=== PATIENT | female | born 1975 | race African-American/Black ===

== ENCOUNTER 2017-02-26 14:51 | Emergency (ER) | payer BC ==
[~2017-02-26] VITALS: Ht 160 cm; Wt 65.8 kg
[~2017-02-26 14:51] MED LIST: NAPR550T PO
--- NOTE | 2017-02-26 16:24 | RAD ---
Indication: Chest pain and cough. Time of exam 1612 hours. No prior studies are available for comparison. The heart size is normal. There appears be a large calcified node in the right paratracheal location. There is also a calcified granuloma noted on the lateral view. No infiltrates are detected. No effusion or pneumothorax is seen. Impression: No acute cardiopulmonary process is detected.
--- NOTE | 2017-02-26 16:28 | PHYS DOC ---
Past Medical History Past Medical History: No Pertinent History Past Surgical History: Other Additional Past Surgical Histo: bilateral knee orthopedic Smoking: Cigarettes, Greater than 1 pack/day Alcohol Use: Occasionally Drug Use: None Adult General Chief Complaint Chief Complaint: COUGH HPI HPI Patient is a 41 year old pleasant -[place] female with history of cough for 2 days pleuritic chest wall pain that began after coughing while exerting herself yesterday mowing the lawn. Patient is evident smoking history and all positive cancer lung history by family members who presents with pleuritic chest wall pain began after nonproductive cough. Yesterday while exercising. Patient describes the chest pain is pleuritic in nature located underneath the left breast underneath the arm with no radiation to the back. She denies any production with the cough, but she has had URI symptoms of runny nose congestion that she sat was allergies. She denies any fever, chills, nausea , vomiting, shortness of breath except splinting with chest pain. Patient denies any arm pain as tingling to her fingers on the left side is now resolved. Patient denies any neck pain denies any trauma specifically to the shoulder or arm. She has had symptoms like this in the past. Her chest pain at this time 4 out of 10 when at rest about a 7 of 10 when she coughs. Impression denies any rash denies any travel denies any pulmonary most risk factors. PERC Criteria Assessment: Age > 50: No HR > 100: No 02 < 95%: No H/o DVT/PE: No Recent trauma/surgery: No Hemoptysis No Exogenous Estrogen: No Unilateral Leg swelling: No Pretest probability > 15%: No Less than 2% risk of PE. No further work up is necessary Differential diagnosis for chest pain: Pericarditis, myocarditis, endocarditis, pneumothorax, pneumonia, aortic dissection, esophageal spasm, esophagitis, peptic ulcer disease, acute coronary syndrome, mediastinitis, Boerhaave syndrome , musculoskeletal chest wall pain, costochondritis, intercostal strain, rib fracture, pulmonary contusion, pneumonitis, pleural effusion, pericardial effusion, pericardial tamponode, and pleurisy. Review of Systems Review of Systems Constitutional: Denies fever or chills [] Eyes: Denies change in visual acuity, redness, or eye pain [] HENT: As patient does complain of clear nasal discharge Respiratory: No scleral nonproductive cough and no shortness of breath Cardiovascular: No additional information not addressed in HPI [] GI: Denies abdominal pain, nausea, vomiting, bloody stools or diarrhea [] : Denies dysuria or hematuria [] Musculoskeletal: Denies back pain or joint pain [] Integument: Denies rash or skin lesions [] Neurologic: Denies headache, focal weakness or sensory changes [] Endocrine: Denies polyuria or polydipsia [] Allergies Allergies Allergies Coded Allergies Type Severity Reaction Last Updated Verified No Known Drug Allergies 12/22/14 No Physical Exam Physical Exam Auto signs stable within normal limits no hypoxia and no tachypnea. Constitutional: Well developed, well nourished, no acute distress, non-toxic appearance. [] HENT: Normocephalic, atraumatic, bilateral external ears normal, oropharynx moist, no oral exudates, nose normal. [] Eyes: PERRLA, EOMI, conjunctiva normal, no discharge. [] Neck: Normal range of motion, no tenderness, supple, no stridor. [] Cardiovascular:Heart rate regular rhythm, no murmur is no pain. His belly exam when pushing over the eighth and ninth rib 6 mid rib intercostal space in the midaxillary line on the left. There is no rash there is no soft tissue swelling is no bony tenderness to palpation with crepitus. Lungs & Thorax: Bilateral breath sounds clear to auscultation [] Abdomen: Bowel sounds normal, soft, no tenderness, no masses, no pulsatile masses. [] Skin: Warm, dry, no erythema, no rash. [] Back: No tenderness, no CVA tenderness. [] Extremities: No tenderness, no cyanosis, no clubbing, ROM intact, no edema. [] Neurologic: Alert and oriented X 3, normal motor function, normal sensory function, no focal deficits noted. [] Psychologic: Affect normal, judgement normal, mood normal. [] Current Patient Data Vital Signs Vital Signs Date Time Temp Pulse Resp B/P (MAP) Pulse Ox O2 Delivery O2 Flow Rate FiO2 02/26/17 16:30 98.1 71 18 98 Room Air 98.1 Lab Values Laboratory Tests Test 02/26/17 16:28 POC Troponin I 0.00 ng/ml (<0.08) EKG EKG [] EKG timed 1617 02/26/2017heart rate of 55 sinus bradycardia normal sinus rhythm with a P-wave 2 every QRS. Intervals normal at 152 QRS intervals normal 74 QTC is normal for 58. a similar T-wave changes consistent with acute ischemia read by Dr. Ruiz. Radiology/Procedures Radiology/Procedures [] IMAGING REPORT Signed PATIENT: HUMAIRA NOLASCO ACCOUNT: [id number] : 1975 LOCATION: ER AGE: 41 SEX: F EXAM STATUS: REG ER ORD. PHYSICIAN: THIERRY RUIZ MD REASON: chest pain after cough PROCEDURE: CHEST PA & LATERAL Indication: Chest pain and cough. Time of exam 1612 hours. No prior studies are available for comparison. The heart size is normal. There appears be a large calcified node in the right paratracheal location. There is also a calcified granuloma noted on the lateral view. No infiltrates are detected. No effusion or pneumothorax is seen. Impression: No acute cardiopulmonary process is detected. DICTATED and SIGNED BY: CONI MCCRAY MD DATE: 02/26/17 1621 CC: THIERRY RUIZ MD; NO PCP ~ Course & Med Decision Making Course & Med Decision Making Pertinent Labs and Imaging studies reviewed. (See chart for details) Since chest x-ray, EKG, bedside troponin by i-STAT was less than 0.017 negative. Impression with poor chest pain is reproducible on exam worse with cough. This pleurisy is likely associated with bronchitis. She does have a significant risk factor for lung cancer given her family history in her smoking history she was encouraged to quit smoking.Differential diagnosis for chest pain : Pericarditis, myocarditis, endocarditis, pneumothorax, pneumonia, aortic dissection, esophageal spasm, esophagitis, peptic ulcer disease, acute coronary syndrome, mediastinitis, Boerhaave syndrome, musculoskeletal chest wall pain, costochondritis, intercostal strain, rib fracture, pulmonary contusion, pneumonitis, pleural effusion, pericardial effusion, pericardial tamponode, and pleurisy. Was considered Mitigate her risks for heart disease although says no evidence of heart damage today. Given duration of symptoms I encouraged her to quit smoking exercise in the right. Coded to heart score patient is low risk for acute coronary event in the next 30 days. History: Highly suspicious 2 points moderately suspicious 1. slightly suspicious 0 point EKG: ST segment depression 2. nonspecific repolarization disturbance 1. normal 0 point Age: Greater than 65 2 points, 65-45 1., less than 45 years old 0 points Risk factors:> 3 risk factors 2 points, 1-2 risk factors one point, no risk factors 0 point Troponin: > 2 times normal 2 points, 1-2 times normal 1., normal limits 0 point Total score: Score % pts MACE/n MACE Policy 0-3 32% 1.9% 0.05% Discharge 4-6 51% 413/3136 13% 1.3% Observation Risk management 7-10 17% 518/1045 50% 2.8% Observation Treatment, CAG [] Impression: Bronchitis, pleuritic chest pain secondary to cough. Disposition: PCP follow-up encouraged to quit smoking course of azithromycin, Lortab and mucolytic Dragon Disclaimer Dragon Disclaimer This electronic medical record was generated, in whole or in part, using a voice recognition dictation system. Departure Departure Impression: Primary Impression: Chest wall pain Additional Impression: Bronchitis Disposition: 01 HOME, SELF-CARE Condition: IMPROVED Referrals: NO PCP (PCP) Patient Instructions: Acute Bronchitis, Chest Pain (Nonspecific) Additional Instructions: Please return for any new or increasing symptoms or given any questions or concerns. I would advise that he quit smoking as that may mitigate your risk for developing heart disease and lung cancer. Scripts Hydrocodone Bit/Acetaminophen (HYDROCODONE-APAP 5-325 ) 1 Each Tablet 1-2 TAB PO PRN Q6HRS Y for PAIN for 5 Days, #10 TAB 0 Refills Prov: THIERRY RUIZ MD 02/26/17 Guaifenesin/Dextromethorphan (MUCINEX DM ER 600-30 MG TABLET) 1 Each Tab.er.12h 1 TAB PO PRN Q12HRS, #20 TAB Prov: THIERRY RUIZ MD 02/26/17 Azithromycin (AZITHROMYCIN TABLET) 250 Mg Tablet 250 MG PO DAILY Y for infection for 5 Days, #6 TAB 0 Refills Please take 2 tablets on day 1 then 1 tablet days 2 through 5. Prov: THIERRY RUIZ MD 02/26/17 Problem Qualifiers THIERRY RUIZ MD Feb 26, 2017 16:28
[2017-02-26 16:30] VITALS: BP 129/75
[2017-02-26] MEDS ORDERED: AZIT250T6 PO (16:54)
[2017-02-26] MEDS ORDERED: HYDR-2666 PO (16:54)
[2017-02-26] MEDS ORDERED: GUAI-42 PO (16:54)
--- NOTE | 2017-02-27 06:11 | EKG ---
[facility] [address] [place] [address] Test Date: 2017-02-26 Test Time: 16:17:27 Pat Name: HUMAIRA NOLASCO Department: Room: Gender: F [employer] Professor: ,, : 1975 Requested By: THIERRY RUIZ Order Number: [id number] Reading MD: Arielle David Measurements Intervals [place] Rate: 55 P: 72 AL: 152 QRS: 44 QRSD: 74 T: 57 QT: 476 QTc: 458 Interpretive Statements SINUS RHYTHM LEFT ATRIAL ABNORMALITY RI6.01 Unconfirmed report No previous ECG available for comparison Electronically Signed On 03-02-2017 22:12:21 CDT by Arielle David
== END 2017-02-26 17:00 | disposition home or self-care (01) ==
LOC: ER 14:51
DX: J40 Bronchitis, not specified as acute or chronic (principal); F17.210 Nicotine dependence, cigarettes, uncomplicated
CPT/HCPCS: 71020; 84484; 93005; 99284-25

== ENCOUNTER 2017-05-29 12:01 | Emergency (ER) | payer BC, OTHER ==
[~2017-05-29] VITALS: Ht 160 cm; Wt 69.4 kg
[~2017-05-29 12:01] MED LIST changes: +AZIT250T6 PO; +GUAI-108 PO; +HYDR-2758 PO; +NAPR-682 PO; -NAPR550T PO
[2017-05-29 12:31] VITALS: BP 125/72
[2017-05-29] MEDS ORDERED: PRED50TA PO (12:51)
[2017-05-29] MEDS ORDERED: ACYC800T PO (12:51)
[2017-05-29] MEDS ORDERED: AMOX875T PO (12:51)
--- NOTE | 2017-05-29 12:51 | PHYS DOC ---
Past Medical History Past Medical History: No Pertinent History Past Surgical History: Tubal ligation, Other Additional Past Surgical Histo: bilateral knee orthopedic Alcohol Use: Occasionally Drug Use: None Adult General Chief Complaint Chief Complaint: EARACHE/EAR PAIN [facility] HPI Patient is a 42 year old female who presents today with left ear pain nasal congestion and a rash on her chest for 1 day. Patient denies any fever. Review of Systems Review of Systems Constitutional: See history of present illness Eyes: Denies change in visual acuity, redness, or eye pain [] HENT: Left ear pain, nasal congestion Respiratory: Denies cough or shortness of breath [] Cardiovascular: No additional information not addressed in HPI [] GI: Denies abdominal pain, nausea, vomiting, bloody stools or diarrhea [] : Denies dysuria or hematuria [] Musculoskeletal: Denies back pain or joint pain [] Integument: rash Neurologic: Denies headache, focal weakness or sensory changes [] Allergies Allergies Allergies Coded Allergies Type Severity Reaction Last Updated Verified No Known Drug Allergies 12/22/14 No Physical Exam Physical Exam Constitutional: Well developed, well nourished, no acute distress, non-toxic appearance. [] HENT: Normocephalic, atraumatic, bilateral external ears normal, oropharynx moist, no oral exudates, Left TM is mildly injected, patient is congested nasally. Eyes: PERRLA, EOMI, conjunctiva normal, no discharge. [] Neck: Normal range of motion, no tenderness, supple, no stridor. [] Cardiovascular:Heart rate regular rhythm, no murmur [] Lungs & Thorax: Bilateral breath sounds clear to auscultation [] Abdomen: Bowel sounds normal, soft, no tenderness, no masses, no pulsatile masses. [] Skin: Patient has a grouped lesions of papular rash on her chest suspicious of shingles. Back: No tenderness, no CVA tenderness. [] Extremities: No tenderness, no cyanosis, no clubbing, ROM intact, no edema. [] Neurologic: Alert and oriented X 3, normal motor function, normal sensory function, no focal deficits noted. [] Psychologic: Affect normal, judgement normal, mood normal. [] Current Patient Data Vital Signs Vital Signs Date Time Temp Pulse Resp B/P (MAP) Pulse Ox O2 Delivery O2 Flow Rate FiO2 05/29/17 12:31 98.1 76 20 99 Room Air 98.1 EKG EKG [] Radiology/Procedures Radiology/Procedures [] Course & Med Decision Making Course & Med Decision Making Pertinent Labs and Imaging studies reviewed. (See chart for details) Patient has left otitis media, upper respiratory infection, and shingles. Discharged with prednisone, acyclovir and amoxicillin. Follow-up with PCP in 1- 2 weeks. Dragon Disclaimer Dragon Disclaimer This electronic medical record was generated, in whole or in part, using a voice recognition dictation system. Departure Departure Impression: Primary Impression: Upper respiratory infection Additional Impressions: Shingles outbreak Otitis media Disposition: HOME, SELF-CARE Condition: STABLE Referrals: NO PCP (PCP) follow up with your doctor in one week Patient Instructions: Otitis Media, Adult, Shingles, [id number], Upper Respiratory Infection, Adult Additional Instructions: You were seen for ear infection and upper respiratory infection and shingles. Take the prescribed medicines as ordered. Follow-up with your doctor in 1-2 weeks. Scripts Amoxicillin (AMOXICILLIN) 875 Mg Tablet 1 TAB PO BID, #20 TAB Prov: WILLEM MENDEZ APRN 05/29/17 Acyclovir (ACYCLOVIR) 800 Mg Tablet 1 TAB PO 5XDAY, #50 TAB Prov: WILLEM MENDEZ APRN 05/29/17 Prednisone (PREDNISONE) 50 Mg Tablet 1 TAB PO DAILY, #5 TAB Prov: WILLEM MENDEZ APRN 05/29/17 Problem Qualifiers Primary Impression: Upper respiratory infection URI type: unspecified URI Qualified Codes: J06.9 - Acute upper respiratory infection, unspecified Additional Impressions: Shingles outbreak Herpes zoster complications: without complications Qualified Codes: B02.9 - Zoster without complications Otitis media Otitis media type: other nonsuppurative Chronicity: acute Laterality: left Recurrence: not specified as recurrent Qualified Codes: H65.192 - Other acute nonsuppurative otitis media, left ear WILLEM MENDEZ APRN May 29, 2017 12:51
== END 2017-05-29 13:06 | disposition home or self-care (01) ==
LOC: ER 12:01
DX: H66.92 Otitis media, unspecified, left ear (principal); J06.9 Acute upper respiratory infection, unspecified; B02.9 Zoster without complications; R21 Rash and other nonspecific skin eruption
CPT/HCPCS: 99283

== ENCOUNTER 2017-06-15 19:29 | Emergency (ER) | payer OTHER ==
[~2017-06-15 19:29] MED LIST changes: +ACYC800T PO; +AMOX875T PO; +PRED50TA PO
[2017-06-15 20:31] VITALS: BP 143/98
--- NOTE | 2017-06-15 20:42 | PHYS DOC ---
Past Medical History Past Medical History: No Pertinent History Past Surgical History: Tubal ligation, Other Additional Past Surgical Histo: bilateral knee orthopedic Alcohol Use: Occasionally Drug Use: None Adult General Chief Complaint Chief Complaint: UPPER EXTREMITY INJURY HPI HPI Patient is a 42 year old female presents to the emergency department with complaints of left elbow pain. Patient states that she fell down the steps striking her elbow on the edge of the steps. She's had pain since incident which occurred approximately hour prior to arrival. She has no other complaints. Review of Systems Review of Systems Constitutional: Denies fever or chills [] Eyes: Denies change in visual acuity, redness, or eye pain [] HENT: Denies nasal congestion or sore throat [] Respiratory: Denies cough or shortness of breath [] Cardiovascular: No additional information not addressed in HPI [] GI: Denies abdominal pain, nausea, vomiting, bloody stools or diarrhea [] : Denies dysuria or hematuria [] Musculoskeletal: left elbow pain Integument: Denies rash or skin lesions [] Neurologic: Denies headache, focal weakness or sensory changes [] Endocrine: Denies polyuria or polydipsia [] Current Medications Current Medications Current Medications Medications (Trade) Dose Ordered Sig/Fam Start Time Stop Time Status Last Admin Dose Admin Fentanyl Citrate (Fentanyl 2ml Vial) 50 mcg 1X ONCE 06/15/17 20:45 06/15/17 20:46 DC 06/15/17 21:01 50 MCG Allergies Allergies Allergies Coded Allergies Type Severity Reaction Last Updated Verified No Known Drug Allergies 12/22/14 No Physical Exam Physical Exam Constitutional: Well developed, well nourished, no acute distress, non-toxic appearance. [] HENT: Normocephalic, atraumatic, bilateral external ears normal, oropharynx moist, no oral exudates, nose normal. [] Eyes: PERRLA, EOMI, conjunctiva normal, no discharge. [] Neck: Normal range of motion, no tenderness, supple, no stridor. [] Cardiovascular:Heart rate regular rhythm, no murmur [] Lungs & Thorax: Bilateral breath sounds clear to auscultation [] Abdomen: Bowel sounds normal, soft, no tenderness, no masses, no pulsatile masses. [] Skin: Warm, dry, no erythema, no rash. [] Back: No tenderness, no CVA tenderness. [] Extremities: Left upper extremity: Left shoulder left wrist exam unremarkable. Patient has mild tenderness to palpate over the olecranon. She refuses to allow for range of motion. She will allow for pronation and supination, and has pain with supination. Her vascular intact distally. Neurologic: Alert and oriented X 3, normal motor function, normal sensory function, no focal deficits noted. [] Psychologic: Affect normal, judgement normal, mood normal. [] Current Patient Data Vital Signs Vital Signs Date Time Temp Pulse Resp B/P (MAP) Pulse Ox O2 Delivery O2 Flow Rate FiO2 06/15/17 21:01 Room Air 06/15/17 20:31 98.3 66 20 100 98.3 EKG EKG [] Radiology/Procedures Radiology/Procedures Left elbow x-ray reviewed, no acute changes. This and is advised the patient of the normal x-ray results, she began to really use the extremity, active and passive range of motion without difficulty or apparent increase in pain. Sling for comfort as needed. Ibuprofen [id number] as labeled and is indicated for symptom management.[] Course & Med Decision Making Course & Med Decision Making Pertinent Labs and Imaging studies reviewed. (See chart for details) [] Dragon Disclaimer Dragon Disclaimer This electronic medical record was generated, in whole or in part, using a voice recognition dictation system. Departure Departure Impression: Primary Impression: Contusion of elbow, left Disposition: 01 HOME, SELF-CARE Condition: STABLE Referrals: NO PCP (PCP) [facility] Patient Instructions: Arm Sling Use, [id number], Elbow Contusion, RICE - Routine Care for Injuries Scripts Naproxen (NAPROSYN) 500 Mg Tablet 500 MG PO BID, #20 TAB Prov: RIVERA NICE APRN 06/15/17 Problem Qualifiers Primary Impression: Contusion of elbow, left Encounter type: initial encounter Qualified Codes: S50.02XA - Contusion of left elbow, initial encounter RIVERA NICE APRN Jun 15, 2017 20:42
[2017-06-15] MEDS ORDERED: fentaNYL PF VIAL 100 MCG/2 ML VIAL IM ONE (20:45)
[2017-06-15] MEDS ORDERED: NAPR500T PO (21:59)
--- NOTE | 2017-06-16 07:39 | RAD ---
Indication injury, pain. AP oblique and lateral views of the left elbow were obtained. No fracture is seen. There is, however, joint effusion and an occult fracture is not entirely excluded. Clinical correlation as to necessity for additional imaging evaluation advised
== END 2017-06-15 22:33 | disposition home or self-care (01) ==
LOC: ER 19:29
DX: S50.02XA Contusion of left elbow, initial encounter (principal); W10.9XXA Fall (on) (from) unspecified stairs and steps, initial encounter; Y93.89 Activity, other specified; Y92.89 Other specified places as the place of occurrence of the external cause; Y99.8 Other external cause status
CPT/HCPCS: 73080; 96372; 99284; J3010

== ENCOUNTER 2018-03-12 21:07 | Emergency (ER) | payer SELFPAY, OTHER | END 2018-03-12 23:05 | disposition home or self-care (01) | LOC: ER 21:07 | DX: H66.93 Otitis media, unspecified, bilateral (principal); J02.9 Acute pharyngitis, unspecified; F17.200 Nicotine dependence, unspecified, uncomplicated; I10 Essential (primary) hypertension; G43.909 Migraine, unspecified, not intractable, without status migrainosus; Z98.51 Tubal ligation status | CPT/HCPCS: 99283 ==

== ENCOUNTER 2018-05-08 10:20 | Emergency (ER) | payer SELFPAY ==
[~2018-05-08] VITALS: Ht 160 cm; Wt 65.8 kg
[~2018-05-08 10:20] MED LIST changes: +AMOX1TAB61 PO; +NAPR-683 PO
[2018-05-08 10:24] VITALS: BP 150/97
--- NOTE | 2018-05-08 10:59 | PHYS DOC ---
Past Medical History Past Medical History: Migraines Past Surgical History: Tubal ligation, Other Additional Past Surgical Histo: bilateral knee orthopedic Alcohol Use: Occasionally Drug Use: None Adult General Chief Complaint Chief Complaint: EYE PROBLEMS HPI HPI 32-year-old female presents to ER with complaints of bilateral eye swelling and itching and irritation. Patient reports she applied makeup this past week in which she typically goes without makeup and since wearing she has had onset of symptoms. She reports sinus congestion, lt ear pressure, and bilat. eye irritation. Review of Systems Review of Systems Constitutional: Denies fever or chills [] Eyes: Denies change in visual acuity, redness, or eye pain [] HENT: Denies sore throat. Reports sinus congestion. Lt ear pressure no pain or decreased hearing. Respiratory: Denies cough or shortness of breath [] Cardiovascular: No additional information not addressed in HPI [] GI: Denies abdominal pain, nausea, vomiting, bloody stools or diarrhea [] : Denies dysuria or hematuria [] Musculoskeletal: Denies back pain or joint pain [] Integument: Denies rash or skin lesions [] Neurologic: Denies headache, focal weakness or sensory changes. Denies dizziness /lightheadedness All other systems were reviewed and found to be within normal limits, except as documented in this note. Current Medications Current Medications Current Medications Medications (Trade) Dose Ordered Sig/Fam Start Time Stop Time Status Last Admin Dose Admin Famotidine (Pepcid) 40 mg 1X ONCE 05/08/18 11:00 05/08/18 11:01 DC 05/08/18 11:01 40 MG Prednisone (Prednisone) 40 mg 1X ONCE 05/08/18 11:00 05/08/18 11:01 DC 05/08/18 11:01 40 MG Allergies Allergies Allergies Coded Allergies Type Severity Reaction Last Updated Verified No Known Drug Allergies 12/22/14 No Physical Exam Physical Exam Constitutional: Well developed, well nourished, no acute distress, non-toxic appearance. [] HENT: Normocephalic, atraumatic,mucous membranes pink/moist, NL pharyngeal exam with no tonsillar/uvula swelling/erythema, turbinates swollen bilat. with no facial swelling/erythema- no nasal drainage. [] Eyes: 3mm PERRLA, EOMI- no eye pain with eye movement, no nystagmus. Bilat. upper eyelid swelling- pt is able to open bilat. eyes has clear/tearlike drainage no purulence Neck: Normal range of motion, no tenderness, supple, no gross adenopathy Cardiovascular:Heart rate regular rhythm, no murmur [] Lungs & Thorax: Bilateral breath sounds clear to auscultation. Resp. equal/ nonlabored Abdomen: Bowel sounds normal, soft, no tenderness, no masses, no pulsatile masses. [] Skin: Warm, dry, no erythema, no rash. [] Back: No tenderness, no CVA tenderness. [] Extremities: No tenderness, no cyanosis, no clubbing, ROM intact, no edema. [] Neurologic: Alert and oriented X 3, normal motor function, normal sensory function, no focal deficits noted. [] Psychologic: Affect normal, judgement normal, mood normal. [] Current Patient Data Vital Signs Vital Signs Date Time Temp Pulse Resp B/P (MAP) Pulse Ox O2 Delivery O2 Flow Rate FiO2 05/08/18 10:24 98.2 63 16 150/97 (114) 99 Room Air 98.2 EKG EKG [] Radiology/Procedures Radiology/Procedures [] Course & Med Decision Making Course & Med Decision Making 1135: pt reports improved sxs since receiving pepcid/prednisone while in ER. On re-eval pt has less bilat. eye swelling with pt reporting vision clear and less irritation. Pt reports itching has mostly subsided. She denies SOA/throat pain or swelling and is in no visible distress. Discussed plans for home discharge with Rx for prednisone and her to use OTC benedryl/pepcid as needed, visine gtts , or topical hydrocortisone cream on skin irritation. Pt at time of discharge had BP 138/77 as initial reading was elevated. Pt denies any past hx of HTN. Will provide clinic referral info with discharge paperwork for f/u as pt has no PCP. Discharge instructions discussed and education provided on s&s to return to ER for. Pt will be given Rx for Prednisone for additional 4 days to be started tomorrow. At time of discharge discussion pt was in no visible distress. Dragon Disclaimer Dragon Disclaimer This electronic medical record was generated, in whole or in part, using a voice recognition dictation system. Departure Departure Impression: Primary Impression: Allergic conjunctivitis Additional Impression: Contact dermatitis Disposition: 01 HOME, SELF-CARE Condition: STABLE Referrals: NO PCP (PCP) Patient Instructions: Allergic Conjunctivitis, Contact Dermatitis Additional Instructions: You can use over the counter benedryl or other antihistamine such as pepcid which you received in the Emergency Department- as needed and as directed on container. Visine or artificial tears as needed as directed on container. Cool compresses to eye lids. Avoid make-up, new lotions, or other new facial skin products until symptoms resolve. Scripts Prednisone (PREDNISONE) 20 Mg Tablet 40 MG PO DAILY, #8 TAB 0 Refills start prescription on 05/09/18 as you received first dose in ER- take for 4 days Prov: ELIZABETH MUSE APRN 05/08/18 Problem Qualifiers ELIZABETH MUSE APRN May 08, 2018 10:59
[2018-05-08] MEDS ORDERED: FAMOTIDINE 20 MG TABLET. PO ONE (11:00)
[2018-05-08] MEDS ORDERED: predniSONE 20 MG TABLET PO ONE (11:00)
[2018-05-08] MEDS ORDERED: PRED20TA PO (11:48)
== END 2018-05-08 12:01 | disposition home or self-care (01) ==
LOC: ER 10:20
DX: H10.13 Acute atopic conjunctivitis, bilateral (principal); L25.9 Unspecified contact dermatitis, unspecified cause; G43.909 Migraine, unspecified, not intractable, without status migrainosus; Z98.51 Tubal ligation status
CPT/HCPCS: 99284; J7512; 99283

== ENCOUNTER 2018-08-12 12:00 | Emergency (ER) | payer SELFPAY ==
[~2018-08-12] VITALS: Ht 160 cm; Wt 62.7 kg
[~2018-08-12 12:00] MED LIST changes: +PRED20TA PO
[2018-08-12 12:28] LABS: BILIRUBIN,URINE NEGATIVE (NEG); CLARITY,URINE CLEAR; COLOR,URINE YELLOW; NITRITE,URINE NEGATIVE (NEG); PH,URINE 6.5; PROTEIN,URINE NEGATIVE (NEG-TRACE)
[2018-08-12] MEDS ORDERED: ORPHENADRINE CITRATE 60 MG/2 ML VIAL. IV ONE (12:30)
[2018-08-12] MEDS ORDERED: DEXAMETHASONE SOD PHOS 20 MG/5 ML VIAL. IV ONE (12:30)
[2018-08-12] MEDS ORDERED: KETOROLAC 30 MG/ML VIAL. IV ONE (12:30)
[2018-08-12 12:39] LABS: BACTERIA,URINE FEW /HPF (0-FEW); RBC,URINE 0 /HPF (0-2); SQUAMOUS EPITHELIAL CELL,UR MOD /LPF
--- NOTE | 2018-08-12 12:40 | PHYS DOC ---
Past Medical History Past Medical History: No Pertinent History, Migraines Past Surgical History: Tubal ligation, Other Additional Past Surgical Histo: bilateral knee orthopedic Alcohol Use: Occasionally Drug Use: None Adult General Chief Complaint Chief Complaint: UPPER EXTREMITY PAIN HPI HPI Patient is a 43-year-old female who presents with one-week history of upper back pain and neck pain that started after she had been lifting some heavy objects. She states that the next morning is when the pain and started. She states that since that time, pain is gotten worse and she now has some radiation of the pain down her arm and numbness and tingling to the fourth and fifth digits of her right hand. She indicates the pain is worsened with deep breathing and states that it feels like she has a stabbing pain in her back as well as her right upper sternal border. She rates the pain at a 9-3/4 out of 10. She denies any nausea, vomiting or diaphoresis. She denies any weakness or speech deficits. She also denies any loss of bowel or bladder control. Review of Systems Review of Systems Constitutional: Denies fever or chills [] Respiratory: Denies cough or shortness of breath [] Cardiovascular: Complains of right sided chest wall pain[] GI: Denies abdominal pain, nausea, vomiting or diarrhea [] : Denies dysuria or hematuria [] Musculoskeletal: Complains of right upper back, neck and shoulder pain [] Integument: Denies rash or skin lesions [] Neurologic: Denies headache, focal weakness. Reports numbness and tingling to the fourth and fifth digits of right hand [] All other systems were reviewed and found to be within normal limits, except as documented in this note. Current Medications Current Medications Current Medications Medications (Trade) Dose Ordered Sig/Fam Start Time Stop Time Status Last Admin Dose Admin Dexamethasone Sodium Phosphate (Decadron) 10 mg 1X ONCE 08/12/18 12:30 08/12/18 12:32 DC 08/12/18 12:38 10 MG Ketorolac Tromethamine (Toradol 30mg Vial) 30 mg 1X ONCE 08/12/18 12:30 08/12/18 12:32 DC 08/12/18 12:38 30 MG Orphenadrine Citrate (Norflex) 60 mg 1X ONCE 08/12/18 12:30 08/12/18 12:32 DC 08/12/18 12:39 60 MG Allergies Allergies Allergies Coded Allergies Type Severity Reaction Last Updated Verified No Known Drug Allergies 12/22/14 No Physical Exam Physical Exam Constitutional: Well developed, well nourished, no acute distress, non-toxic appearance. [] HENT: Normocephalic, atraumatic, bilateral external ears normal, oropharynx moist, no oral exudates, nose normal. [] Eyes: PERRLA, EOMI, conjunctiva normal, no discharge. [] Neck: Normal range of motion, supple. There is tenderness to palpation in the right sided suboccipital and cervical strap muscles. [] Cardiovascular:Heart rate regular rhythm [] Lungs & Thorax: Bilateral breath sounds clear to auscultation [] Abdomen: Bowel sounds normal, soft. [] Skin: Warm, dry, no erythema, no rash. [] Back: There is tenderness to palpation in the right sided levator scapula, trapezius and rhomboid muscles with palpable spasm. [] Extremities: No tenderness, no cyanosis, no clubbing, ROM intact, no edema. [] Neurologic: Alert and oriented X 3, normal motor function, normal sensory function, no focal deficits noted. [] Current Patient Data Vital Signs Vital Signs Date Time Temp Pulse Resp B/P (MAP) Pulse Ox O2 Delivery O2 Flow Rate FiO2 08/12/18 12:06 98.0 89 18 142/87 (105) 99 Room Air 98.0 Lab Values Laboratory Tests Test 08/12/18 12:06 08/12/18 12:19 08/12/18 12:25 Urine Collection Type Unknown Urine Color Yellow Urine Clarity Clear Urine pH 6.5 Urine Specific [place] 1.020 Urine Protein Negative mg/dL (NEG-TRACE) Urine Glucose (UA) Negative mg/dL (NEG) Urine Ketones (Stick) Negative mg/dL (NEG) Urine Blood Large (NEG) Urine Nitrite Negative (NEG) Urine Bilirubin Negative (NEG) Urine Urobilinogen Dipstick 1.0 mg/dL (0.2 mg/dL) Urine Leukocyte Esterase Trace (NEG) Urine RBC 0 /HPF (0-2) Urine WBC 1-4 /HPF (0-4) Urine Squamous Epithelial Cells Mod /LPF Urine Bacteria Few /HPF (0-FEW) Urine Mucus Slight /LPF POC Urine HCG, Qualitative Hcg negative (Negative) White Blood Count 4.7 x10^3/uL (4.0-11.0) Red Blood Count 5.10 x10^6/uL (3.50-5.40) Hemoglobin 14.8 g/dL (12.0-15.5) Hematocrit 45.2 % (36.0-47.0) Mean Corpuscular Volume 88 fL (79-100) Mean Corpuscular Hemoglobin 29 pg (25-35) Mean Corpuscular Hemoglobin Concent 33 g/dL (31-37) Red Cell Distribution Width 13.3 % (11.5-14.5) Platelet Count 195 x10^3/uL (140-400) Neutrophils (%) (Auto) 47 % (31-73) Lymphocytes (%) (Auto) 29 % (24-48) Monocytes (%) (Auto) 17 % (0-9) H Eosinophils (%) (Auto) 6 % (0-3) H Basophils (%) (Auto) 1 % (0-3) Neutrophils # (Auto) 2.2 x10^3uL (1.8-7.7) Lymphocytes # (Auto) 1.4 x10^3/uL (1.0-4.8) Monocytes # (Auto) 0.8 x10^3/uL (0.0-1.1) Eosinophils # (Auto) 0.3 x10^3/uL (0.0-0.7) Basophils # (Auto) 0.0 x10^3/uL (0.0-0.2) Sodium Level 137 mmol/L (136-145) Potassium Level 4.6 mmol/L (3.5-5.1) Chloride Level 103 mmol/L (98-107) Carbon Dioxide Level 27 mmol/L (21-32) Anion Gap 7 (6-14) Blood Urea Nitrogen 14 mg/dL (7-20) Creatinine 1.0 mg/dL (0.6-1.0) Estimated GFR (Cockcroft-Gault) 72.9 BUN/Creatinine Ratio 14 (6-20) Glucose Level 102 mg/dL (70-99) H Calcium Level 9.4 mg/dL (8.5-10.1) Total Bilirubin 0.8 mg/dL (0.2-1.0) Aspartate Amino Transferase (AST) 31 U/L (15-37) Alanine Aminotransferase (ALT) 32 U/L (14-59) Alkaline Phosphatase 95 U/L (46-116) Total Protein 8.8 g/dL (6.4-8.2) H Albumin 4.0 g/dL (3.4-5.0) Albumin/Globulin Ratio 0.8 (1.0-1.7) L Laboratory Tests 08/12/18 12:25 Laboratory Tests 08/12/18 12:25 EKG EKG [] Radiology/Procedures Radiology/Procedures [] Course & Med Decision Making Course & Med Decision Making Pertinent Labs and Imaging studies reviewed. (See chart for details) [] Dragon Disclaimer Dragon Disclaimer This electronic medical record was generated, in whole or in part, using a voice recognition dictation system. Departure Departure Impression: Primary Impression: Muscle spasm of back Additional Impressions: Upper back pain Paresthesia of right upper limb Disposition: HOME, SELF-CARE Condition: STABLE Referrals: NO PCP (PCP) Patient Instructions: Back Pain, Adult, Muscle Cramps, Paresthesia Scripts Orphenadrine Citrate (ORPHENADRINE CITRATE) 100 Mg Tablet.er 1 TAB PO BID PRN for MUSCLE SPASMS, #14 TAB Prov: JEANETTE HOPKINS Jr. DO 08/12/18 Ketorolac Tromethamine (KETOROLAC TROMETHAMINE) 10 Mg Tablet 1 TAB PO PRN Q6HRS PRN for PAIN, #20 TAB Prov: JEANETTE HOPKINS Jr. DO 08/12/18 Hydrocodone/Apap 5-325 (NORCO 5-325 TABLET) 1 Each Tablet 1 EACH PO PRN Q6HRS PRN for PAIN, #12 as needed for pain Prov: JEANETTE HOPKINS Jr. DO 08/12/18 Lidocaine (Lidocaine) 1 Each Adh..patch 1 EACH TP UD PRN for MUSCLE PAIN, #10 PATCH Prov: JEANETTE HOPKINS Jr. DO 08/12/18 Problem Qualifiers JEANETTE HOPKINS Jr. DO Aug 12, 2018 12:40
[2018-08-12 12:46] LABS: CALCIUM 9.4 mg/dL (8.5-10.1); GFR 72.9; POTASSIUM 4.6 mmol/L (3.5-5.1)
[2018-08-12 12:47] LABS: BASO % 1 % (0-3); EOS # 0.3 x10^3/uL (0.0-0.7); EOS % 6 % (0-3); HEMATOCRIT 45.2 % (36.0-47.0); HEMOGLOBIN 14.8 g/dL (12.0-15.5); LYMPH # 1.4 x10^3/uL (1.0-4.8); LYMPH % 29 % (24-48); MEAN CORPUSCULAR HEMOGLOBIN 29 pg (25-35); MEAN CORPUSCULAR HGB CONC 33 g/dL (31-37); MEAN CORPUSCULAR VOLUME 88 fL (79-100); MONO # 0.8 x10^3/uL (0.0-1.1); MONO % 17 % (0-9); NEUT # 2.2 x10^3uL (1.8-7.7); NEUT % 47 % (31-73); PLATELET COUNT 195 x10^3/uL (140-400); RED CELL DISTRIBUTION WIDTH 13.3 % (11.5-14.5); WHITE BLOOD COUNT 4.7 x10^3/uL (4.0-11.0)
[2018-08-12 12:51] LABS: ALBUMIN/GLOBULIN RATIO 0.8 (1.0-1.7); TOTAL BILIRUBIN 0.8 mg/dL (0.2-1.0); TOTAL PROTEIN 8.8 g/dL (6.4-8.2)
[2018-08-12] MEDS ORDERED: ORPH100T PO (13:54)
[2018-08-12] MEDS ORDERED: KETO10TA PO (13:54)
[2018-08-12] MEDS ORDERED: LIDO700A39 TP (13:54)
[2018-08-12] MEDS ORDERED: HYDR-3164 PO (13:54)
[2018-08-12 14:00] VITALS: BP 123/75
== END 2018-08-12 14:08 | disposition home or self-care (01) ==
LOC: ER 12:00
DX: M62.830 Muscle spasm of back (principal); M54.6 Pain in thoracic spine; M54.2 Cervicalgia; R20.2 Paresthesia of skin; M25.511 Pain in right shoulder; R20.0 Anesthesia of skin; G43.909 Migraine, unspecified, not intractable, without status migrainosus; Z98.51 Tubal ligation status
CPT/HCPCS: 36415; 80053; 81001; 81025; 85025; 87086; 96374; 96375; 99284; J1100; J1885; J2360

== ENCOUNTER 2019-07-31 15:55 | Emergency (ER) | payer BC ==
[~2019-07-31] VITALS: Ht 162.6 cm; Wt 65.8 kg
[~2019-07-31 15:55] MED LIST changes: -HYDR-2758 PO; +HYDR-2761 PO; +HYDR-3164 PO; +KETO10TA PO; +LIDO700A21 TP; +ORPH100T PO
[2019-07-31 16:17] VITALS: BP 165/69
[2019-07-31] MEDS ORDERED: BACITRACIN TOPICAL OINT PACKET. TP ONE (16:30)
[2019-07-31] MEDS ORDERED: CEPH500T PO (17:09)
[2019-07-31] MEDS ORDERED: HYDR-3164 PO (17:09)
[2019-07-31] MEDS ORDERED: BACI28.34 TP (17:09)
--- NOTE | 2019-07-31 17:09 | PHYS DOC ---
Past Medical History Past Medical History: No Pertinent History, Migraines Past Surgical History: Tubal ligation, Other Additional Past Surgical Histo: bilateral knee orthopedic Alcohol Use: Occasionally Drug Use: None Adult General Chief Complaint Chief Complaint: BURN/SMOKE INHALATION HPI HPI Patient is a 44 year old female patient who presents to the ED today complaining of michel to the left hand, patient states she was making fried chicken and accidentally burned herself. She is right-handed. Review of Systems Review of Systems Constitutional: Denies fever or chills [] Musculoskeletal: Denies back pain or joint pain [] Integument: Reports second-degree burn to the left hand Neurologic: Denies headache, focal weakness or sensory changes [] All other systems were reviewed and found to be within normal limits, except as documented in this note. Current Medications Current Medications Current Medications Medications (Trade) Dose Ordered Sig/Fam Start Time Stop Time Status Last Admin Dose Admin Bacitracin (Bacitracin Zinc Oint Pkt) 1 pkt 1X ONCE 07/31/19 16:30 07/31/19 16:31 DC 07/31/19 16:36 1 PKT Allergies Allergies Allergies Coded Allergies Type Severity Reaction Last Updated Verified No Known Drug Allergies 12/22/14 No Physical Exam Physical Exam Constitutional: Well developed, well nourished, no acute distress, non-toxic appearance. [] Skin: Warm, dry, left ring finger mid phalanx dorsal aspect with a large blister approximately 2 x 2 centimeters. There is another small blister noted on the right middle finger mid phalanx. Neurovascular exam is intact to all the fingers. Back: No tenderness, no CVA tenderness. [] Extremities: No tenderness, no cyanosis, no clubbing, ROM intact, no edema. [] Neurologic: Alert and oriented X 3, normal motor function, normal sensory function, no focal deficits noted. [] Psychologic: Affect normal, judgement normal, mood normal. [] Current Patient Data Vital Signs Vital Signs Date Time Temp Pulse Resp B/P (MAP) Pulse Ox O2 Delivery O2 Flow Rate FiO2 07/31/19 16:17 97.8 93 12 165/69 (101) 98 Room Air 97.8 EKG EKG [] Radiology/Procedures Radiology/Procedures Indication: Left ring finger blister drainage Procedure: The patient was positioned appropriately. Local anesthesia was not applicable. An incision was then made over the apex of the lesion and mild amount of clear material was expressed. The drainage cavity was irrigated and Neosporin applied to the area and covered with nonstick dressing The patient tolerated the procedure well. Complications: none.[] Course & Med Decision Making Course & Med Decision Making Pertinent Labs and Imaging studies reviewed. (See chart for details) This is a 44-year-old female patient presenting to the ED today with second- degree michel to the left middle finger and ring finger. Patient had a large blister on the left ring finger that was drained by me as noted in procedures. Tetanus was updated. Bacitracin was applied to the burned regions. Provided wound care formation for follow-up. Discharged with cephalexin, bacitracin and hydrocodone. Dragon Disclaimer Dragon Disclaimer This electronic medical record was generated, in whole or in part, using a voice recognition dictation system. Departure Departure Impression: Primary Impression: Second degree burn of fingers Disposition: HOME, SELF-CARE Condition: STABLE Referrals: NO PCP (PCP) Please contact [facility] wound clinic at [phone] and set up a follow-up appointment Patient Instructions: Second-Degree Burn Additional Instructions: You have a second-degree burn to the right fingers. Keep the area clean and dry. You can shower and wash the area once or twice a day with soap and water. Keep the area open to air when you are home. You can cover the area if you are out of the house and it is draining. Take the prescribed antibiotics until completed. Take the prescribed pain medicine as needed for pain. Please contact [facility] wound clinic tomorrow and set up a follow-up appointment. Please return to the ED at any point wound condition worsens Scripts Hydrocodone/Apap 5-325 (NORCO 5-325 TABLET) 1 Each Tablet 1 TAB PO Q6HRS, #20 TAB Prov: WILLEM MENDEZ APRN 07/31/19 Bacitracin/Polymyxin B Sulfate (POLYSPORIN TOPICAL OINT) 28.3 Gm Oint...g. 1 PAPITO TP BID for WOUND CARE, #1 TUBE Prov: WILLEM MENDEZ APRN 07/31/19 Cephalexin (CEPHALEXIN) 500 Mg Tablet 1 TAB PO TID, #30 TAB Prov: WILLEM MENDEZ APRN 07/31/19 WILLEM MENDEZ APRN Jul 31, 2019 17:09
== END 2019-07-31 17:22 | disposition home or self-care (01) ==
LOC: ER 15:55
DX: T23.222A Burn of second degree of single left finger (nail) except thumb, initial encounter (principal); G43.909 Migraine, unspecified, not intractable, without status migrainosus; Z98.51 Tubal ligation status; T79.9XXA Unspecified early complication of trauma, initial encounter; X08.8XXA Exposure to other specified smoke, fire and flames, initial encounter; Y93.G3 Activity, cooking and baking; Y92.090 Kitchen in other non-institutional residence as the place of occurrence of the external cause; Y99.8 Other external cause status
CPT/HCPCS: 10140; 99284

== ENCOUNTER 2019-08-05 19:09 | Emergency (ER) | payer BC ==
[~2019-08-05] VITALS: Ht 162.6 cm; Wt 65.8 kg
[~2019-08-05 19:09] MED LIST changes: +BACI28.34 TP; +CEPH500T PO
[2019-08-05 19:31] VITALS: BP 142/91
[2019-08-05] MEDS ORDERED: METH4TAB2 PO (19:35)
--- NOTE | 2019-08-05 19:47 | PHYS DOC ---
Past Medical History Past Medical History: No Pertinent History, Migraines Past Surgical History: Tubal ligation, Other Additional Past Surgical Histo: bilateral knee orthopedic Alcohol Use: Occasionally Drug Use: None Adult General Chief Complaint Chief Complaint: ALLERGIC REACTION HPI HPI Patient is a 44 year old female presents with chief complaint of allergic reaction she has a rash to her face that started 2 hours ago she does not know why she has not had any new soaps or detergents or anything like that no trouble breathing no fever no prior allergic history has not tried anything for relief yet. Allergies Allergies Allergies Coded Allergies Type Severity Reaction Last Updated Verified No Known Drug Allergies 12/22/14 No Physical Exam Physical Exam Constitutional: Well developed, well nourished, no acute distress, non-toxic appearance. [] HENT: Normocephalic, atraumatic, bilateral external ears normal, oropharynx m oist, no oral exudates, nose normal. [] Eyes: PERRLA, EOMI, conjunctiva normal, no discharge. [] Neck: Normal range of motion, no tenderness, supple, no stridor. [] Cardiovascular:Heart rate regular rhythm, no murmur [] Lungs & Thorax: Bilateral breath sounds clear to auscultation [] Abdomen: Bowel sounds normal, soft, no tenderness, no masses, no pulsatile masses. [] Skin: There is a raised papular rash over the right periorbital area as well as some mild periorbital swelling the airways patent there is no airway swelling lungs are clear Extremities: No tenderness, no cyanosis, no clubbing, ROM intact, no edema. [] Neurologic: Alert and oriented X 3, normal motor function, normal sensory function, no focal deficits noted. [] Psychologic: Affect normal, judgement normal, mood normal. [] Current Patient Data Vital Signs Vital Signs Date Time Temp Pulse Resp B/P (MAP) Pulse Ox O2 Delivery O2 Flow Rate FiO2 08/05/19 19:31 98.5 65 18 142/91 (108) 95 Room Air 98.5 EKG EKG [] Radiology/Procedures Radiology/Procedures [] Course & Med Decision Making Course & Med Decision Making Pertinent Labs and Imaging studies reviewed. (See chart for details) []Dermatitis looks like a contact him tenderness of some kind but denies any new detergents try Medrol Dosepak and Benadryl at home return precautions discussed no airway involvement Jatinder Disclaimer Jatinder Disclaimer This electronic medical record was generated, in whole or in part, using a voice recognition dictation system. Departure Departure Impression: Primary Impression: Dermatitis Disposition: 01 HOME, SELF-CARE Condition: STABLE Patient Instructions: Rash, [id number] Scripts Methylprednisolone (MEDROL) 4 Mg Tab.ds.pk 1 PKG PO UD, #1 PKG Prov: TA DURÁN MD 08/05/19 TA DURÁN MD Aug 05, 2019 19:47
== END 2019-08-05 19:50 | disposition home or self-care (01) ==
LOC: ER 19:09
DX: L30.9 Dermatitis, unspecified (principal); G43.909 Migraine, unspecified, not intractable, without status migrainosus; Z98.51 Tubal ligation status
CPT/HCPCS: 99283

== ENCOUNTER 2020-03-03 08:23 | Emergency (ER) | payer BC ==
[~2020-03-03] VITALS: Ht 160 cm; Wt 68.0 kg
[~2020-03-03 08:23] MED LIST changes: +METH4TAB2 PO
[2020-03-03 09:28] VITALS: BP 143/88
[2020-03-03] MEDS ORDERED: ONDANSETRON ODT 4 MG TAB.RAPDIS. PO ONE (09:30)
[2020-03-03] MEDS ORDERED: KETOROLAC 60 MG/2 ML VIAL. IM ONE (09:30)
[2020-03-03] MEDS ORDERED: AMOX500C PO (09:34)
[2020-03-03] MEDS ORDERED: BUTA1CAP31 PO (09:34)
[2020-03-03] MEDS ORDERED: ONDA4TAB7 PO (09:34)
--- NOTE | 2020-03-03 09:35 | PHYS DOC ---
Past Medical History Past Medical History: No Pertinent History, Migraines Past Surgical History: Tubal ligation, Other Additional Past Surgical Histo: bilateral knee orthopedic Smoking Status: Current Every Day Smoker Additional Information: 1/2 PACK A DAY Alcohol Use: Occasionally Drug Use: None General Adult EDM: Chief Complaint: HEADACHE HPI: HPI: Patient is a 44 year old female who presented to ER today for evaluation of headache, nausea vomiting for couple days. Patient says the light and noise makes her headache worse. Patient has history of migraine headache, she says this is her typical migraine headache. Patient also complained of left ear pain, no fever, no neck pain, no cough, no trouble breathing. Patient also has some episodes diarrhea. Review of Systems: Review of Systems: Constitutional: Denies fever or chills. [] Eyes: Denies change in visual acuity. [] HENT: Denies nasal congestion or sore throat. Positive for left ear pain Respiratory: Denies cough or shortness of breath. [] Cardiovascular: Denies chest pain or edema. [] GI: Denies abdominal pain, positive for nausea vomiting and diarrhea : Denies dysuria. [] Musculoskeletal: Denies back pain or joint pain. [] Integument: Denies rash. [] Neurologic: Denies headache, focal weakness or sensory changes. [] Endocrine: Denies polyuria or polydipsia. [] Lymphatic: Denies swollen glands. [] Psychiatric: Denies depression or anxiety. [] Heart Score: Risk Factors: Risk Factors: DM, Current or recent (<one month) smoker, HTN, HLP, family history of CAD, obesity. Risk Scores: Score 0 - 3: 2.5% MACE over next 6 weeks - Discharge Home Score 4 - 6: 20.3% MACE over next 6 weeks - Admit for Clinical Observation Score 7 - 10: 72.7% MACE over next 6 weeks - Early Invasive Strategies Current Medications: Current Medications Medications (Trade) Dose Ordered Sig/[facility] Start Time Stop Time Status Last Admin Dose Admin Ketorolac Tromethamine (Toradol Im) 60 mg 1X ONCE 03/03/20 09:30 03/03/20 09:31 Ondansetron HCl (Zofran Odt) 4 mg 1X ONCE 03/03/20 09:30 03/03/20 09:31 Allergies: Allergies: Allergies Coded Allergies Type Severity Reaction Last Updated Verified No Known Drug Allergies 12/22/14 No Physical Exam: PE: Constitutional: Well developed, well nourished, no acute distress, non-toxic appearance. [] HENT: Normocephalic, atraumatic, bilateral external ears normal, oropharynx moist, no oral exudates, nose normal. Left tympanic membrane is bulging and erythematous. Eyes: PERRLA, EOMI, conjunctiva normal, no discharge. [] Neck: Normal range of motion, no tenderness, supple, no stridor. Cardiovascular:Heart rate regular rhythm, no murmur [] Lungs & Thorax: Bilateral breath sounds clear to auscultation [] Abdomen: Bowel sounds normal, soft, no tenderness, no masses, no pulsatile masses. [] Skin: Warm, dry, no erythema, no rash. [] Back: No tenderness, no CVA tenderness. [] Extremities: No tenderness, no cyanosis, no clubbing, ROM intact, no edema. [] Neurologic: Alert and oriented X 3, normal motor function, normal sensory function, no focal deficits noted. [] Psychologic: Affect normal, judgement normal, mood normal. [] Current Patient Data: Vital Signs: Vital Signs Date Time Temp Pulse Resp B/P (MAP) Pulse Ox O2 Delivery O2 Flow Rate FiO2 03/03/20 08:58 59 16 98 03/03/20 08:27 97.7 159/99 (119) Room Air 97.7 EKG: EKG: [] Radiology/Procedures: Radiology/Procedures: [] Course & Med Decision Making: Course & Med Decision Making Pertinent Labs and Imaging studies reviewed. (See chart for details) [] Dragon Disclaimer: Jatinder Disclaimer: This electronic medical record was generated, in whole or in part, using a voice recognition dictation system. Departure Departure Impression: Primary Impression: Headache Additional Impression: Left otitis media Disposition: 01 HOME, SELF-CARE Condition: IMPROVED Referrals: NO PCP (PCP) please call your family doctor for follow up in 2 days Patient Instructions: General Headache Without Cause, Otitis Media, Adult Additional Instructions: Thank you for visiting our Emergency Department. We appreciate you trusting us with your care. If any additional problems come up don't hesitate to return to visit us. Please follow up with your primary care provider so they can plan additional care if needed and know about the problem that you had. If symptoms worsen come back to the Emergency Department. Any concerning symptoms that start such as chest pain, shortness of air, weakness or numbness on one side of the body, running high fevers or any other concerning symptoms return to the ER. Scripts Ondansetron Hcl (ZOFRAN) 4 Mg Tablet 1 TAB PO Q6HRS, #15 TAB Prov: KLARISSA BAI DO 03/03/20 Butalbital/Aspirin/Caffeine (FIORINAL 50-325-40 MG CAPSULE) 1 Each Capsule 1 EACH PO QID PRN for HEADACHE, #15 CAP Prov: KLARISSA BAI DO 03/03/20 Amoxicillin (AMOXICILLIN) 500 Mg Capsule 500 MG PO TID for 10 Days, #30 CAP 0 Refills Prov: KLARISSA BAI DO 03/03/20 Justicifation of Admission Dx: Justifications for Admission: Justification of Admission Dx: N/A KLARISSA BAI DO Mar 03, 2020 09:35
== END 2020-03-03 09:49 | disposition home or self-care (01) ==
LOC: ER 08:23
DX: G43.909 Migraine, unspecified, not intractable, without status migrainosus (principal); H66.92 Otitis media, unspecified, left ear; R19.7 Diarrhea, unspecified; F17.200 Nicotine dependence, unspecified, uncomplicated
CPT/HCPCS: 96372; 99283; J1885

== ENCOUNTER 2020-05-10 14:16 | Emergency (ER) | payer BC ==
[~2020-05-10] VITALS: Ht 160 cm; Wt 72.0 kg
[~2020-05-10 14:16] MED LIST changes: +AMOX500C PO; +BUTA1CAP31 PO; +ONDA4TAB7 PO
[2020-05-10 14:20] VITALS: BP 136/74
--- NOTE | 2020-05-10 14:59 | PHYS DOC ---
Past Medical History Past Medical History: No Pertinent History, Migraines Past Surgical History: Tubal ligation, Other Additional Past Surgical Histo: bilateral knee orthopedic Smoking Status: Current Every Day Smoker Alcohol Use: Occasionally Drug Use: None General Adult EDM: Chief Complaint: EARACHE/EAR PAIN HPI: HPI: Patient is a 44 year old AA female who presents to the emergency department with complaints of bilateral ear pain for the last 2 days, decreased hearing in the right ear, and a runny nose. She denies any fever, cough, sinus pressure, headache, sore throat, shortness of breath, abdominal pain, nausea, vomiting, or diarrhea. She denies any bleeding or drainage from her ears. She denies any trauma to her ears. She currently rates the discomfort a 8 out of 10 on the pain scale, she denies any alleviating or exacerbating factors; she denies any radiation of the pain. Review of Systems: Review of Systems: Constitutional: Denies fever or chills. [] HENT: Denies nasal congestion or sore throat; reports runny nose with clear drainage; see HPI [] Respiratory: Denies cough or shortness of breath. [] Cardiovascular: Denies chest pain or edema. [] GI: Denies abdominal pain, nausea, vomiting Musculoskeletal: Denies back pain or joint pain. [] Integument: Denies rash. [] Neurologic: Denies headache Lymphatic: Denies swollen glands. [] Psychiatric: Denies depression or anxiety. [] Heart Score: Risk Factors: Risk Factors: DM, Current or recent (<one month) smoker, HTN, HLP, family history of CAD, obesity. Risk Scores: Score 0 - 3: 2.5% MACE over next 6 weeks - Discharge Home Score 4 - 6: 20.3% MACE over next 6 weeks - Admit for Clinical Observation Score 7 - 10: 72.7% MACE over next 6 weeks - Early Invasive Strategies Allergies: Allergies: Allergies Coded Allergies Type Severity Reaction Last Updated Verified No Known Drug Allergies 12/22/14 No Physical Exam: PE: Constitutional: Well developed, well nourished, no acute distress, non-toxic appearance. [] HENT: Normocephalic, atraumatic, bilateral external ears normal, bilateral TMs normal, posterior pharynx normal, external nose normal; nasal turbinates edematous and erythematous bilaterally with congestion present. [] Eyes: PERRLA, EOMI, conjunctiva normal, no discharge. [] Neck: Normal range of motion, supple, nontender, no stridor. [] Cardiovascular:Heart rate regular rhythm Lungs & Thorax: Respirations even and unlabored, no retractions, no respiratory distress, lungs CTA Skin: Warm, dry, no erythema, no rash. [] Extremities: No cyanosis, ROM intact, no edema. [] Neurologic: Alert and oriented X 3, no focal deficits noted. [] Psychologic: Affect normal, judgement normal, mood normal. [] Current Patient Data: Vital Signs: Vital Signs Date Time Temp Pulse Resp B/P (MAP) Pulse Ox O2 Delivery O2 Flow Rate FiO2 05/10/20 14:20 98.6 77 15 136/74 (94) 99 Room Air 98.6 EKG: EKG: [] Radiology/Procedures: Radiology/Procedures: [] Course & Med Decision Making: Course & Med Decision Making Pertinent Labs and Imaging studies reviewed. (See chart for details) Patient presented for complaints of bilateral ear pain and decreased hearing in the right ear for the last 2 days. Physical exam is consistent with allergic rhinitis and probable eustachian tube dysfunction. I recommended the patient try [id number] antihistamines with decongestant and [id number] Flonase for relief of her discomfort. Advis ed the patient that there is no evidence of acute infection. Follow-up with her primary care doctor if symptoms persist, return to the ER symptoms worsen. Patient verbalized an understanding of home care, medications, follow-up, and return to ED instructions and was in agreement with the plan of care. [] Dragon Disclaimer: Dragon Disclaimer: This electronic medical record was generated, in whole or in part, using a voice recognition dictation system. Departure Departure Impression: Primary Impression: Acute dysfunction of both eustachian tubes Additional Impression: Allergic rhinitis Qualified Codes: J30.9 - Allergic rhinitis, unspecified Disposition: 01 HOME, SELF-CARE Condition: STABLE Referrals: NO PCP (PCP) Patient Instructions: Allergic Rhinitis Additional Instructions: Recommend that you take 10 mg of generic Zyrtec D (cetirizine) or Claritin D and use over the counter Flonase (fluticasone) nasal spray 2 sprays each nostril once daily in the morning. You may take Tylenol or ibuprofen as needed for pain/fever. Increase clear fluids. Follow-up with your primary care doctor if symptoms persist, return to the ER if symptoms worsen. Justicifation of Admission Dx: Justifications for Admission: Justification of Admission Dx: N/A ELADIO RILEY [employer] May 10, 2020 14:59
== END 2020-05-10 15:04 | disposition home or self-care (01) ==
LOC: ER 14:16
DX: J30.9 Allergic rhinitis, unspecified (principal); R09.89 Other specified symptoms and signs involving the circulatory and respiratory systems; H92.03 Otalgia, bilateral; G43.909 Migraine, unspecified, not intractable, without status migrainosus; F17.200 Nicotine dependence, unspecified, uncomplicated; Z98.51 Tubal ligation status; Z98.890 Other specified postprocedural states
CPT/HCPCS: 99282

== ENCOUNTER 2021-08-24 09:20 | Emergency (ER) | payer BC ==
[~2021-08-24] VITALS: Ht 157.5 cm; Wt 71.9 kg
[~2021-08-24 09:20] MED LIST changes: -ACYC800T PO; +ACYC800T88 PO
[2021-08-24 09:25] VITALS: BP 144/83
[2021-08-24] MEDS ORDERED: NAPH15DR3 EACHEYE (09:42)
--- NOTE | 2021-08-24 09:49 | PHYS DOC ---
Past Medical History Past Medical History: No Pertinent History, Migraines Past Surgical History: Tubal ligation, Other Additional Past Surgical Histo: bilateral knee orthopedic Smoking Status: Current Every Day Smoker Alcohol Use: Occasionally Drug Use: None General Adult EDM: Chief Complaint: EYE PROBLEMS HPI: HPI: Patient is a 46 year old female without pertinent past medical history who presents with bilateral eye redness and irritation. Started the day after Thanksgiving when she tried a new eyeliner. Denies any body or eye trauma. Has had redness and slight drainage. Does have crusting in the mornings. No runny nose, cough, congestion, sore throat, or ear discomfort. No fevers or chills. No one with similar symptoms in her household. States that she has a history of a reaction to an eyeliner similar to this in the past. Eyes are itchy, but are not painful. No vision changes. Has had increased tearing. Review of Systems: Review of Systems: Constitutional: Denies fever or chills. [] Eyes: Reports eye redness and itching. Denies change in visual acuity. [] HENT: Denies nasal congestion or sore throat. [] Respiratory: Denies cough or shortness of breath. [] Integument: Denies rash. [] Neurologic: Denies headache, focal weakness or sensory changes. [] Heart Score: C/O Chest Pain: No Allergies: Allergies: Allergies Coded Allergies Type Severity Reaction Last Updated Verified No Known Drug Allergies 12/22/14 No Physical Exam: PE: Constitutional: Well developed, well nourished, no acute distress, non-toxic appearance. [] HENT: Normocephalic, atraumatic, bilateral external ears normal, oropharynx moist, no oral exudates, nose normal. [] Eyes: Bilateral eyes with conjunctival injection. Pupils equal, round, reactive to light. Mild tearing, but no purulent drainage. Vision 20/20 OU. 20/30 OD. 20/25 OS. No photophobia. No evidence of preorbital or orbital edema or cellulitis. Eyelids with normal appearance. Cardiovascular: Regular rate Lungs & Thorax: Normal work of breathing. No distress. Skin: Warm, dry, no erythema, no rash. [] Neurologic: Alert and oriented X 3, normal motor function, normal sensory function, no focal deficits noted. [] Psychologic: Affect normal, judgement normal, mood normal. [] EKG: EKG: [] Radiology/Procedures: Radiology/Procedures: [] Course & Med Decision Making: Course & Med Decision Making Pertinent Labs and Imaging studies reviewed. (See chart for details) Patient 46-year-old female presents with bilateral eye redness, itching after using a new eyeliner. Exam most consistent with an irritant conjunctivitis/allergic conjunctivitis. We will advise saline drops and topical antihistamine drops. Dragon Disclaimer: Dragon Disclaimer: This electronic medical record was generated, in whole or in part, using a voice recognition dictation system. Departure Departure Impression: Primary Impression: Conjunctival irritation Disposition: HOME / SELF CARE / HOMELESS Condition: STABLE Referrals: NO PCP (PCP) Additional Instructions: Please use the naphazoline drops up to 4 times a day for eye redness and itching. In between these drops you can use saline drops if you find them to be helpful. If you develop pain in the eyes, vision loss, fever/chills, or other new/concerning symptoms you can return to the emergency department for reevaluation. Scripts Naphazoline Hcl/Pheniramine (OPCON-A EYE DROPS) 15 Ml Drops 1 DROP EACHEYE QID PRN for REDNESS for 5 Days, #15 ML 0 Refills Prov: KIKA ZHOU MD 08/24/21 KIKA ZHOU MD Aug 24, 2021 09:49
== END 2021-08-24 09:51 | disposition home or self-care (01) ==
LOC: ER 09:20
DX: H11.89 Other specified disorders of conjunctiva (principal); G43.909 Migraine, unspecified, not intractable, without status migrainosus; F17.200 Nicotine dependence, unspecified, uncomplicated
CPT/HCPCS: 99282